=== PATIENT | male | born 1980 | race Caucasian/White ===

== ENCOUNTER 2019-01-11 20:03 | Emergency (ER) | payer OTHER ==
--- NOTE | 2019-01-11 20:10 | PDOC ---
History of Present Illness - General Stated Complaint: RIGHT KNEE INJURY Time Seen by Provider: 01/11/19 20:09 History Source: Patient, EMS Past History - Past Medical History Allergies/Adverse Reactions: Allergies Allergy/AdvReac Type Severity Reaction Status Date / Time No Known Allergies Allergy Verified 01/11/19 20:27 Home Medications: Ambulatory Orders Oxycodone HCl/Acetaminophen [Percocet 5-325 mg Tablet] 1 tab PO Q6H #14 tablet MDD 4 01/11/19 Medical Decision Making - Medical Decision Making 01/11/19 20:13 38M with no PMH p/w difficulty ambulating, pain s/p jumping on a trampoline, no head trauma, LOC, unable to walk Discharge - Discharge Information Problems reviewed: Yes Clinical Impression/Diagnosis: Patellar tendon rupture Qualifiers: Encounter type: initial encounter Laterality: right Qualified Code(s): S86.811A - Strain of other muscle(s) and tendon(s) at lower leg level, right leg , initial encounter Condition: Stable Disposition: HOME - Admission No - Additional Discharge Information Prescriptions: Oxycodone HCl/Acetaminophen [Percocet 5-325 mg Tablet] 1 tab PO Q6H #14 tablet MDD 4 - Follow up/Referral Referrals: Carlos Moreno MD [Primary Care Provider] - Jimenez Olsen MD [Staff Physician] - Akshat Mccloud MD [Staff Physician] - - Patient Discharge Instructions Patient Printed Discharge Instructions: How to Use Crutches, DI for Patellar Tendinopathy Additional Instructions: You were see in the ER after injuring your knee on a trampoline. Your x-ray showed that your patella is displaced, consistent with a patellar tendon injury. We are playing your knee in a brace, and prescribing pain medication. Please make sure to follow up with Orthopedics ([facility]) as soon as possible, in the next 4 days. We are giving you a referral for an orthopedist, please call and make an appointment as soon as possible. Please rest the knee, and walk with the crutches we are providing. Please return to the ER if you develop weakness in the right foot, feel your right foot become cold or painful , or if you develop worsening swelling in the knee with a high fever. - Post Discharge Activity
[2019-01-11 20:38] VITALS: BMI 30.4
--- NOTE | 2019-01-11 20:46 | PDOC ---
Documentation entered by Natalie Tovar SCRIBE, acting as scribe for Carlos Penn MD. Carlos Penn MD: This documentation has been prepared by the mariselaibeGuy Lincy, SCRIBE, under my direction and personally reviewed by me in its entirety. I confirm that the documentation accurately reflects all work, treatment, procedures, and medical decision making performed by me. Attending Attestation - Resident Resident Name: Zay Villafana - HPI HPI: 01/11/19 20:52 The patient is a 38-year-old male with no reported past medical history who presents to the emergency department via EMS with R. knee pain with difficulty ambulating s/p jumping on a trampoline. Allergies: NKDA - Physicial Exam PE: 01/11/19 20:45 Patient is awake and alert, well-nourished, in moderate distress Normocephalic, atraumatic No cervical spine tenderness to palpation CTA Right knee: Significant soft tissue swelling is noted consistent with an effusion; anterior drawer's is positive; Sarthak's is positive; patient is unable to extend the knee; neurovascular intact distally; 21:37 Patient reassessed. Patient is neurovascularly intact distally. Patient is unable to extend the knee. Anterior drawers is positive. Posterior drawers is negative. - Medical Decision Making 01/11/19 20:46 Patient is a 38-year-old male who presents with signs and symptoms of acute ACL tear. Will obtain knee x-ray to rule out patella fracture. Will administer pain meds. We will also attempt to rule out tibial plateau fracture. Likely knee immobilizer and discharged with crutches. 01/11/19 21:37 Knee x-ray reveals high riding patella and possible avulsion fracture to the inferior aspect of the patella consistent with patellar tendon rupture. I also suspect ACL disruption at this time. There is no suspicion for spontaneously reduced knee dislocation at this time. Will apply knee immobilizer crutches. Will discharge with orthopedic follow-up.
[2019-01-11 22:29] VITALS: BP 137/77; PULSE 94; TEMP 98.3
== END 2019-01-11 23:26 | disposition home or self-care (01) ==
LOC: JER 20:03
DX: S86.811A Strain of other muscle(s) and tendon(s) at lower leg level, right leg, initial encounter (principal); X50.0XXA Overexertion from strenuous movement or load, initial encounter; Y93.44 Activity, trampolining; Y92.89 Other specified places as the place of occurrence of the external cause; Y99.8 Other external cause status
CPT/HCPCS: 73562-TC-RT-FY; 99282-25